=== PATIENT | male | born 1990 | race Caucasian/White ===

== ENCOUNTER 2024-04-10 12:00 | Emergency (ER) | payer SELFPAY ==
[2024-04-10 12:02] VITALS: BP 159/84; PULSE 80; RESP 18; TEMP 36.9; O2SAT 99; BMI 35.5
--- NOTE | 2024-04-10 12:22 | XR_ITS ---
FINAL REPORT CLINICAL HISTORY: fall / twist / popping COMPARISON: None FINDINGS: LEFT KNEE 3 views of the left knee were obtained. There is no acute fracture or dislocation. Visualized joint spaces are normally aligned. A moderate joint effusion is present. IMPRESSION: Moderate joint effusion, without acute bony abnormality identified. Would consider MRI follow-up if symptoms persist. Reviewed, Interpreted and Dictated by Kristan Sapp MD Transcribed by Radha Mcintyre Authenticated and [facility]
--- NOTE | 2024-04-10 12:22 | HMH.EDGENADL ---
Discharge Plan Disposition Patient Disposition: Home, Self-Care Condition: Good Prescriptions Prescriptions: No Action No Known Home Medications Referrals Follow up/Referrals: Kailash Amaya DO [Staff Physician] - See instructions (left knee pain / suspect MCL ) Provider,Referral, [Primary Care Provider] - See instructions Activity Restrictions/Add. Instructions Additional Instructions/Restrictions: Rest. Wear Cameron wrap. Use crutches. Take acetaminophen and ibuprofen [id number] as directed. Please call and schedule an appointment with orthopedics as soon as you are able. Clinical Impressions Clinical Impression: Acute pain of left knee Left knee sprain Qualifiers: Encounter type: initial encounter Involved ligament of knee: unspecified ligament Qualified Code(s): S83.92XA - Sprain of unspecified site of left knee, initial encounter Stand Alone Forms Stand Alone Forms: Work/School Release Instructions Patient Instructions: DI for Knee Pain Print Language Print Language: Upper Sorbian Discharge ED Provider: Mandeep Reina General Adult HPI <Kristi Elias APRN - Last Filed: 04/10/24 13:01> General Chief complaint: Extremity Injury, Lower Stated complaint: WC-1000 hours- Pain/swelling L knee Time Seen by Provider: 04/10/24 12:09 Mode of Arrival: Wheelchair Limitations: No Limitations Description of Symptoms (Recalled from ER Triage Doc. by RN): Patient stated he was at work when he sustained a left knee injury. States he stepped out of his vehicle and into a hole in the parking lot. States he heard a pop and also went to the ground. Denies any prior injury. Denies any premedication. Patient states History of Present Illness HPI narrative: 33-year-old male presents to the ED for complaints of left knee pain. Patient states earlier today he stepped down into a hole with his left leg, hearing his knee pop and sudden onset pain. Related Data Home Medications ?Medication ?Instructions ?Recorded ?Confirmed No Known Home Medications 04/10/24 04/10/24 Allergies Allergy/AdvReac Type Severity Reaction Status Date / Time acetaminophen (From Lortab) Allergy Rash Verified 04/10/24 12:25 hydrocodone (From Lortab) Allergy Rash Verified 04/10/24 12:25 oxycodone (From Percocet) Allergy Rash Verified 04/10/24 12:25 PFSH <Kristi Elias APRN - Last Filed: 04/10/24 13:01> [facility] Disclaimer: The information contained in this section may have been updated after the patient was seen, as this information can be updated by other users. Social History (Updated 04/10/24 @ 13:01 by Kristi Elias APRN) Smoking Status: Current every day smoker alcohol intake: never current occupational status: employed Travel in the last 8 weeks: None Have you lived/traveled outside US in past 30 days?: No Contact w/someone who lives/traveled outside US past 30 days?: No Exposure to someone with infectious disease in past 14 days?: No Do you have a fever (greater than 100.4 F or 38 C)?: No Have you tested positive for COVID-19: No Exposed to someone with COVID-19 in past 14 days?: No Do you have a sore throat?: No Do you have a cough?: No Do you have any weakness?: No Do you have any diarrhea?: No Are you experiencing any unusual bleeding?: No Do you have any muscle aches/pain?: No Do you have any abdominal pain?: No Are you experiencing loss of taste or smell?: No <Kristi Elias APRN - Last Filed: 04/10/24 13:01> ROS Obtained: Yes Systems reviewed as appropriate & no additional complaints except as documented Physical Exam <Kristi Elias APRN - Last Filed: 04/10/24 13:01> General General appearance: alert, in no apparent distress and other (Obese) Head Head exam: atraumatic and normocephalic Eye Eye exam: Present normal appearance and PERRL ENT ENT exam: Present normal exam Neck Neck exam: Present normal inspection Chest Chest inspection: Present normal inspection and symmetric chest wall rise; Absent tenderness Respiratory Respiratory exam: Present normal lung sounds bilaterally Cardiovascular Cardiovascular exam: Present regular rate Abdominal Exam Abdominal exam: Present soft and normal bowel sounds; Absent tenderness Extremities Exam Extremities exam: Present full ROM and other (Medial aspect of left knee tenderness, mild posterior left knee tenderness. Patella midline. Quadriceps intact.) Back Exam Back exam: Present normal inspection and full ROM Neurological Exam Neurological exam: Present alert and oriented X3 Psychiatric Psychiatric exam: Present normal affect and normal mood Skin Skin exam: Present warm and dry Medical Decision Making <Kristi Elias APRN - Last Filed: 04/10/24 13:01> Medical Records Screening: Per USPSTF and CDC recommendations, given the prevalence of disease in our region, it is our hospital?s policy to screen for HIV and viral Hepatitis for all patients aged 18 and over and those with ongoing risk factors. Lupillo Inquiry Pt receiving controlled substance: No Lupillo was queried for this patient: No Vital Signs: 04/10/24 12:02 04/10/24 12:38 Temperature 98.4 F Temperature Source Oral Pulse Rate 77 Pulse Rate [Radial] 80 Respiratory Rate 18 Blood Pressure 134/87 Blood Pressure [R Arm] 159/84 H Blood Pressure Mean [R Arm] 109 Blood Pressure Source [R Arm] Automatic Cuff 02 Sat by Pulse Oximetry 99 99 Oxygen Delivery Method Room Air Room Air Orders (Tests/Meds): ED MEDICATIONS Discontinued Medications Generic Name Dose Route Start Last Admin Trade Name Freq PRN Reason Stop Dose Admin Ibuprofen 600 mg 04/10/24 12:26 04/10/24 12:27 Ibuprofen 600 Mg Tablet PO 04/10/24 12:27 600 mg ONCE ONE Administration ORDERS Category Date Time Status Knee XR left 3 views [XR knee LT 3V] Stat Exams 04/10/24 12:22 Completed Medical Decision Narrative: In summary, patient is a 33-year-old male who presents to the ED with complaint of left knee pain. Patient states earlier today he stepped into a hole with his left lower extremity, he states he heard a pop in his left knee. Patient states he has left knee pain worse with weightbearing and extension. He denies any previous injury to this knee. Denies previous surgery to left lower extremity. Upon initial exam, patient is alert, oriented and cooperative. Patient is hemodynamically stable. Physical exam remarkable for obesity. Medial aspect of left knee tenderness, mild posterior left knee tenderness. Patella midline. Quadriceps intact. Full range of motion, pain with extension. Distal neurovascular status intact. Differential diagnosis includes sprain, strain, ligamentous injury, fracture, malalignment Initial workup will be conducted with imaging. Offered Motrin, patient declined. Initial workup reviewed by me. I informally interpreted the imaging as no acute fracture. Upon repeat evaluation, patient condition remained stable. They were ambulatory in the ED. discussed that we will place Cameron wrap on left knee and he can use crutches for the first several days. Discussed the use of the Cameron wrap and how it supports his ligaments in the knee. Discussed elevating, icing, resting. Discussed that if this does not improve within 1 week he will need to follow-up with orthopedics for further evaluation. Had an interactive discussion with the patient about discharge, he is agreeable to be discharged home at this time. We discussed return precautions to the ED. Patient verbalized understanding <Mandeep Reina MD - Last Filed: 04/10/24 13:08> Vital Signs: 04/10/24 12:02 04/10/24 12:38 Temperature 98.4 F Temperature Source Oral Pulse Rate 77 Pulse Rate [Radial] 80 Respiratory Rate 18 Blood Pressure 134/87 Blood Pressure [R Arm] 159/84 H Blood Pressure Mean [R Arm] 109 Blood Pressure Source [R Arm] Automatic Cuff 02 Sat by Pulse Oximetry 99 99 Oxygen Delivery Method Room Air Room Air Orders (Tests/Meds): ED MEDICATIONS Discontinued Medications Generic Name Dose Route Start Last Admin Trade Name Freq PRN Reason Stop Dose Admin Ibuprofen 600 mg 04/10/24 12:26 04/10/24 12:27 Ibuprofen 600 Mg Tablet PO 04/10/24 12:27 600 mg ONCE ONE Administration ORDERS Category Date Time Status Knee XR left 3 views [XR knee LT 3V] Stat Exams 04/10/24 12:22 Completed Medical Decision Narrative: In summary, patient is a 33-year-old male who presents to the ED with complaint of left knee pain. Patient states earlier today he stepped into a hole with his left lower extremity, he states he heard a pop in his left knee. Patient states he has left knee pain worse with weightbearing and extension. He denies any previous injury to this knee. Denies previous surgery to left lower extremity. Upon initial exam, patient is alert, oriented and cooperative. Patient is hemodynamically stable. Physical exam remarkable for obesity. Medial aspect of left knee tenderness, mild posterior left knee tenderness. Patella midline. Quadriceps intact. Full range of motion, pain with extension. Distal neurovascular status intact. Differential diagnosis includes sprain, strain, ligamentous injury, fracture, malalignment Initial workup will be conducted with imaging. Offered Motrin, patient declined. Initial workup reviewed by me. I informally interpreted the imaging as no acute fracture. Upon repeat evaluation, patient condition remained stable. They were ambulatory in the ED. discussed that we will place Cameron wrap on left knee and he can use crutches for the first several days. Discussed the use of the Cameron wrap and how it supports his ligaments in the knee. Discussed elevating, icing, resting. Discussed that if this does not improve within 1 week he will need to follow-up with orthopedics for further evaluation. Had an interactive discussion with the patient about discharge, he is agreeable to be discharged home at this time. We discussed return precautions to the ED. Patient verbalized understanding. I was consulted by the STEPHIE, and we discussed the complexity of the problems being addressed. I approved the treatment and management plan for this patient's care in the emergency department, thus performing a substantive portion of the medical decision making. Mandeep Reina MD Critical Care <Kristi Elias APRN - Last Filed: 04/10/24 13:01> Critical Care Time Critical Care Time: No
[2024-04-10] MEDS: IBUPROFEN 600 MG TABLET PO (12:27)
[2024-04-10 12:38] VITALS: BP 134/87; PULSE 77; O2SAT 99
[2024-04-10 13:07] VITALS: BP 134/87; PULSE 85; RESP 18; TEMP 36.8; O2SAT 98
== END 2024-04-10 13:09 | disposition home or self-care (01) ==
PROVIDERS: Emergency Provider Emergency Medicine
DX: S83.92XA Sprain of unspecified site of left knee, initial encounter (principal); X50.0XXA Overexertion from strenuous movement or load, initial encounter
CPT/HCPCS: 73562; 99283

== ENCOUNTER 2024-08-21 13:59 | Emergency (ER) | payer SELFPAY ==
[2024-08-21 14:07] VITALS: BP 115/61; PULSE 86; RESP 18; TEMP 36.9; O2SAT 97; BMI 35.5
--- OUTSIDE RECORDS SUMMARY | 2024-08-21 14:09 | XMS_ITS | Patient Health Record ---
Author Organization [id number] [facility] Address [address] [place], [place] [id number] Care Team Providers Care Eyewear Consultant Name Role Phone EZEKIEL HOOK Unavailable [phone] Tima Masters Unavailable Unavailable Allergies Allergen (clinical drug ingredient) Drug/Non Drug Allergy documented on EMR Reaction Allergy Type Onset Date Status Lortab Unknown Drug Allergy Active Reason For Referral No Information Immunizations Vaccine Route Administration Date Status Comme nts zFLU 4V (AFLURIA QUAD), 3+yr s, NO PRES - SELF PAY Unknown 09/29/2019 Administered Social History Tobacco Use: Social History Observation Description Date Details (start date - stop date) Current Smoker NA - NA Tobacco Status: Question Answer Notes Patient is a current every day smoker Problems Problem Type SNOMED Code ICD Code Onset Dates Problem Status W/U Status Risk Notes Problem [id number] Appendicitis, unspecified appendicitis type (K37) Active confirmed Plan Of Treatment No Information Insurance Providers Payer Name Payer Address Payer Phone Subscriber Number Group Number Insured Name Patient Relationship to Insured Coverage Start Date Coverage End Date [facility] [employer] [address] [facility], APRIL [id number] Jesus Bowman Self - patient is the insured 0 Medical (General) History Medical History History ICD Code Appendicitis, unspecified appendicitis t ype K37 Surgical History Surgery Date(Month/Year) laparoscopic appendectomy R knee replacement
[2024-08-21 14:51] VITALS: PULSE 86; RESP 18; O2SAT 97
--- NOTE | 2024-08-21 14:51 | ED_ITS ---
Discharge Plan Disposition Patient Disposition: Home, Self-Care Condition: Good Prescriptions Prescriptions: New indomethacin 50 mg capsule 50 mg PO TID Qty: 15 0RF Rx Instructions: administer with food or milk prednisone 20 mg tablet 40 mg PO DAILY 5 Days Qty: 10 0RF Referrals Follow up/Referrals: Provider,Referral, MD [Primary Care Provider, Medical] - See instructions Activity Restrictions/Add. Instructions Additional Instructions/Restrictions: Please utilize your medication as prescribed, please take indomethacin 50 mg 3 times daily for 5 days, please take your prednisone 40 mg once daily in the morning, please return to the emergency department any worsening signs or symptoms, please follow-up with your family doctor in the upcoming days. Clinical Impressions Clinical Impression: Acute gout of left foot Instructions Patient Instructions: DI for Gout Print Language Print Language: Trinidadian Discharge ED Provider: Jeff Birmingham General Adult HPI <REYNA Atwood - Last Filed: 08/21/24 16:10> General Chief complaint: Extremity Injury, Lower Stated complaint: Pain/swelling L foot Time Seen by Provider: 08/21/24 14:37 Mode of Arrival: Ambulatory Source of Information: Patient Description of Symptoms (Recalled from ER Triage Doc. by RN): Pt reports left foot pain and swelling which pt states began yesterday. Pt denies injury. Pt rates pain 8/10. History of Present Illness HPI narrative: 33-year-old male presents the emergency department with left foot pain and swelling localized to the great toe, 8 out of 10, started last 2 days ago, no trauma or injury, denies any fever chills chest pain shortness of breath nausea vomiting constipation diarrhea no abdominal pain, no urinary type symptomatology, initial triage vitals are unremarkable, patient is current everyday tobacco user (smokeless tobacco), denies any alcohol or drug use, patient has no other relevant past medical history, only takes biologic for psoriatic arthritis at home. Onset (ago): day(s) Related Data Previous Rx's ?Medication ?Instructions ?Recorded indomethacin 50 mg capsule 50 mg PO TID #15 caps 08/21 prednisone 20 mg tablet 40 mg (2 x 20 mg) PO DAILY 5 days 08/21/24 #10 tabs Allergies Allergy/AdvReac Type Severity Reaction Status Date / Time acetaminophen (From Lortab) Allergy Rash Verified 05/08/24 10:56 hydrocodone (From Lortab) Allergy Rash Verified 05/08/24 10:56 oxycodone (From Percocet) Allergy Rash Verified 05/08/24 10:56 PFSH <REYNA Atwood - Last Filed: 08/21/24 16:10> [facility] Disclaimer: The information contained in this section may have been updated after the patient was seen, as this information can be updated by other users. Surgical History History of total right knee replacement Social History Smoking Status: Current every day smoker alcohol intake: never current occupational status: employed Travel in the last 8 weeks?: None Have you lived/traveled outside US in past 30 days?: No Contact w/someone who lives/traveled outside US past 30 days?: No Exposure to someone with infectious disease in past 14 days?: No Do you have a fever (greater than 100.4 F or 38 C)?: No Have you tested positive for COVID-19?: No Exposed to someone with COVID-19 in past 14 days?: No Do you have a sore throat?: No Do you have a cough?: No Do you have any weakness?: No Do you have any diarrhea?: No Are you experiencing any unusual bleeding?: No Do you have any muscle aches/pain?: No Do you have any abdominal pain?: No Are you experiencing loss of taste or smell?: No <REYNA Atwood - Last Filed: 08/21/24 16:10> ROS Obtained: Yes All systems reviewed & no additional complaints except as documented Physical Exam <REYNA Atwood - Last Filed: 08/21/24 16:10> General General appearance: alert and in no apparent distress Head Head exam: atraumatic and normocephalic Eye Eye exam: Present PERRL and EOMI ENT ENT exam: Present mucous membranes moist Neck Neck exam: Present normal inspection Chest Chest inspection: Present normal inspection and symmetric chest wall rise Respiratory Respiratory exam: Present normal lung sounds bilaterally; Absent respiratory distress Cardiovascular Cardiovascular exam: Present regular rate and normal rhythm Abdominal Exam Abdominal exam: Present soft; Absent tenderness Extremities Exam Extremities exam: Present normal inspection, tenderness and other (Hot to the touch sensation over the first/great MTP joint on the left foot, with podagara otherwise neurovascularly intact. ) Neurological Exam Neurological exam: Present alert and oriented X3 Psychiatric Psychiatric exam: Present normal affect Skin Skin exam: Present warm and dry Medical Decision Making <REYNA Atwood - Last Filed: 08/21/24 16:10> Medical Records Medical records reviewed: Yes I reviewed the patient's medical records. Screening: Per USPSTF and CDC recommendations, given the prevalence of disease in our region, it is our hospital?s policy to screen for HIV and viral Hepatitis for all patients aged 18 and over and those with ongoing risk factors. Lupillo Inquiry Pt receiving controlled substance: No Lupillo was queried for this patient: No Vital Signs: 08/21/24 14:07 08/21/24 14:51 08/21/24 16:12 Temperature 98.4 F 98.7 F Temperature Source Oral Oral Pulse Rate 86 81 Pulse Rate [Left] 86 Respiratory Rate 18 18 16 Blood Pressure 118/65 Blood Pressure [Left Arm] 115/61 Blood Pressure Mean [Left Arm] 79 Blood Pressure Source Automatic Cuff Blood Pressure Source [Left Arm] Automatic Cuff Blood Pressure Position Sitting Sitting 02 Sat by Pulse Oximetry 97 97 Oxygen Delivery Method Room Air Room Air Room Air Orders (Tests/Meds): ED MEDICATIONS Discontinued Medications Generic Name Dose Route Start Last Admin Trade Name Abramq PRN Reason Stop Dose Admin Indomethacin 50 mg 08/21/24 15:14 08/21/24 15:24 Indomethacin 25 Mg Capsule PO 08/21/24 15:15 50 mg ONCE ONE Administration ORDERS Category Date Time Status XR foot LT min 3V Stat Exams 08/21/24 15:00 Completed Medical Decision Narrative: 33-year-old male presents emergency department with left great toe pain 2 days, no trauma, differential diagnosis include but not limited to gout, pseudogout, osteoarthritis, sprain/strain among others. Discussed patient with attending physician Dr. Birmingham Will give 50 mg p.o. indomethacin here in the emergency department, and obtain foot x-ray. I along with the attending physician reviewed the patient's plain film foot x- ray, no acute osseous abnormality. However full radiology report is not yet back, is consistent with the patient, patient will be discharged home to self- care I think this is reasonable. Will treat with 50 mg into Mathiesen 3 times daily for 5 days, will also give 40 mg p.o. prednisone for 5 days, patient voiced understanding and agreed with current treatment plan/discharge plan, follow-up PCP as directed, and return to emergency with any worsening signs or symptoms. <Jeff Birmingham MD - Last Filed: 08/21/24 17:42> Vital Signs: 08/21/24 14:07 08/21/24 14:51 08/21/24 16:12 Temperature 98.4 F 98.7 F Temperature Source Oral Oral Pulse Rate 86 81 Pulse Rate [Left] 86 Respiratory Rate 18 18 16 Blood Pressure 118/65 Blood Pressure [Left Arm] 115/61 Blood Pressure Mean [Left Arm] 79 Blood Pressure Source Automatic Cuff Blood Pressure Source [Left Arm] Automatic Cuff Blood Pressure Position Sitting Sitting 02 Sat by Pulse Oximetry 97 97 Oxygen Delivery Method Room Air Room Air Room Air Orders (Tests/Meds): ED MEDICATIONS Discontinued Medications Generic Name Dose Route Start Last Admin Trade Name Freq PRN Reason Stop Dose Admin Indomethacin 50 mg 08/21/24 15:14 08/21/24 15:24 Indomethacin 25 Mg Capsule PO 08/21/24 15:15 50 mg ONCE ONE Administration ORDERS Category Date Time Status XR foot LT min 3V Stat Exams 08/21/24 15:00 Completed Medical Decision Narrative: 33-year-old male presents emergency department with left great toe pain 2 days, no trauma, differential diagnosis include but not limited to gout, pseudogout, osteoarthritis, sprain/strain among others. Discussed patient with attending physician Dr. Birmingham Will give 50 mg p.o. indomethacin here in the emergency department, and obtain foot x-ray. I along with the attending physician reviewed the patient's plain film foot x- ray, no acute osseous abnormality. However full radiology report is not yet back, is consistent with the patient, patient will be discharged home to self- care I think this is reasonable. Will treat with 50 mg indomethacin 3 times daily for 5 days, will also give 40 mg p.o. prednisone for 5 days, patient voiced understanding and agreed with current treatment plan/discharge plan, follow-up PCP as directed, and return to emergency with any worsening signs or symptoms. I was consulted by the STEPHIE, and we discussed the complexity of the problems being addressed. I approved the treatment and management plan for this patient's care in the Emergency Department, thus performing a substantive portion of the medical decision making. Jeff Birmingham MD Critical Care <REYNA Atwood - Last Filed: 08/21/24 16:10> Critical Care Time Critical Care Time: No
--- NOTE | 2024-08-21 15:00 | XR_ITS ---
FINAL REPORT CLINICAL HISTORY: Left great toe pain, entire foot swollen where he can't put on shoes COMPARISON: None FINDINGS: Three views of the left foot show no evidence of acute displaced fracture or dislocation of the visualized bony architecture. Mild hallux valgus deformity is noted. IMPRESSION: Mild hallux valgus deformity. Otherwise, unremarkable exam. Reviewed, Interpreted and Dictated by Kristan Sapp MD Transcribed by Deena Rm Authenticated and [facility]
[2024-08-21] MEDS: INDOMETHACIN 25 MG CAPSULE 50 MG PO (15:24)
[2024-08-21 16:12] VITALS: BP 118/65; PULSE 81; RESP 16; TEMP 37.1; O2SAT 97
== END 2024-08-21 16:21 | disposition home or self-care (01) ==
PROVIDERS: Emergency Provider Emergency Medicine
DX: M10.072 Idiopathic gout, left ankle and foot (principal); F17.210 Nicotine dependence, cigarettes, uncomplicated
CPT/HCPCS: 73630; 99283